=== PATIENT | male | born 1930 | race Caucasian/White ===

== ENCOUNTER → 2016-10-08 | Outpatient (CLI) | payer OTHER ==
[~2016-10-08] MED LIST: AMARYL PO; ASPIRIN PO; AVANDIA PO; CIPRO PO; CLINORIL PO; FLOMAX0.4 MG PO; LISINOPRIL PO; PATIENT'S PHARMACY; PERCOCET PO; PRILOSEC PO; ULTRAM PO
--- NOTE | ~2016-10-08 | US77 ---
[facility] A Service of [facility] & [facility] RADIOLOGY TEXT RESULTS PATIENT: BERNARDA JAMES LOCATION: [facility]US : 32 UNIT #: [id number] AGE: [address]: Cierra Garcia MD SEX: M ORDER DR: [id number] [facility] [address] [place], [place] [address] [id number] O MR#: [id number] Acc #: [id number] NAME: BERNARDA JAMES : 1930 SEX: M STUDY DATE/TIME: 10/08/2016 12:37 UNIT: [facility] ROOM: STUDY DESCRIPTION: US Kidney Bilateral Complete Attending Physician: Cady Garcia M.D. Referring Physician: Cady Garcia M.D. Ordering Physician: Cady Garcia M.D. Primary Care Physician: Di Leblanc M.D. MEDICAL IMAGING REPORT This report is preliminary unless electronic signature is present EXAM Bilateral kidneys, 10/08/2016. 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 FINDINGS The bladder is normal in appearance. The right kidney is about 8 cm in length. There is no mass, cyst, or hydronephrosis visible. Left kidney is about 10 cm in length and also appears normal. IMPRESSION Normal bilateral renal ultrasound. Dictated by... Mathew Ham M.D. THIS IS AN ELECTRONICALLY VERIFIED REPORT Mathew Ham M.D. at 10/08/2016 10:09 PM MAYUR/mara TD: 10/08/2016 18:01 JOB #: [id number] MEDICAL IMAGING REPORT Page 1 of 1 COPY
== END | disposition home or self-care (01) ==
LOC: CGUS 12:00
DX: N17.9 Acute kidney failure, unspecified (principal); N18.3 Chronic kidney disease, stage 3 (moderate)
CPT/HCPCS: 76770